=== PATIENT | male | born 1970 | race Caucasian/White ===

== ENCOUNTER 2023-03-13 08:10 | Emergency (ER) | payer OTHER, SELFPAY ==
--- NOTE | ~2023-03-13 | XR_ITS ---
EXAMINATION: XR ribs LT 2V DATE: 03/13/2023 08:55 INDICATION: Left rib pain. TECHNIQUE: 2 views of the left ribs on 3 radiographs were obtained. COMPARISON: Chest 2 views 11/23/2010 FINDINGS: There is no left-sided pneumonia, pleural effusion, or pneumothorax. The heart size is norm al. There are old healed fractures of left fourth-seventh ribs. There is an acute fracture of anterio r left seventh rib. IMPRESSION: 1. Acute fracture of anterior left seventh rib. Reviewed, dictated and finalized at location A.
--- NOTE | 2023-03-13 08:13 | ED.GENADULT ---
HPI - General Adult General Chief complaint: Unspecified Stated complaint: Pt said that he is having pain in left rib. Time Seen by Provider: 03/13/23 08:37 Mode of arrival: ambulatory Limitations: no limitations History of Present Illness HPI narrative: 52-year-old male presents with concern for left anterior rib pain. Reports he is concerned he has a broken rib. Reports he has broken ribs in the past and this feels very similar. Reports he can feel the rib ?popping?. Reports the pain is reproducible. He reports it hurts worse with deep breathing and coughing. He denies any other chest pain, shortness of breath, cough. He denies known injury or trauma. 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 He denies bruising, swelling, redness, rash, itching in the area MD complaint: Rib pain Related Data Home Medications Medication Instructions Recorded Confirmed albuterol sulfate 90 mcg/actuation 2 puff inhalation Q4-5H PRN SOB 03/13/23 03/13/23 aerosol inhaler duloxetine 60 mg capsule,delayed 60 mg PO DAILY 03/13/23 03/13/23 release lisinopril 20 mg tablet 20 mg PO DAILY 03/13/23 03/13/23 Allergies Allergy/AdvReac Type Severity Reaction Status Date / Time No Known Allergies Allergy Verified 03/13/23 08:35 Review of Systems Review of Systems: CONSTITUTIONAL: Denies malaise, chills, sweats, or fever. ENT: Denies rhinorrhea, congestion, sinus pain, otalgia or sore throat. CARDIOVASCULAR: Denies chest pain, palpitations, or edema. RESPIRATORY: Denies cough or dyspnea. GASTROINTESTINAL: Denies abdominal pain, nausea, vomiting, diarrhea SKIN: Denies redness, swelling, rash or itching. MUSCULOSKELETAL: Denies back pain. Reports left anterior rib pain All systems reviewed & are unremarkable except as noted in HPI and below PMFSH Comments At time of signature, agree with nursing past medical, surgical, social and family history. There is no relevant family history pertinent to the presenting complaint Exam Narrative: GENERAL: Well-appearing, well-nourished, and in no acute distress. HEAD: Normocephalic, atraumatic. ENT: Nares clear. Mucous membranes moist. NECK: Supple. CHEST: No respiratory distress. Clear to auscultation. No bony deformities, no asymmetry. Speaks in full sentences. HEART: Regular rate and rhythm. No murmur heard. ABDOMEN: Soft, nontender, nondistended, negative Olmedo sign EXTREMITIES: Normal range of motion. Tenderness upon palpation to the left lower anterior rib cage without bruising, swelling, redness, warmth vesicles SKIN: Warm, dry, no visible rash. NEURO: Alert and oriented x3. PSYCH: Normal mood and affect Course Course Emergency Course: Patient is aware of diagnosis, understands and agrees to treatment plan. Anticipatory guidance given. Patient agrees to follow-up as directed and is aware of reasons to seek care at the emergency department. Portions of this record may have been created with voice recognition software Level of Care: Express Care Visit Vital Signs Vital signs: Reviewed. Medical Decision Making MDM Narrative Medical decision making narrative: Exam findings and imaging show no acute concerns or changes; patient is non-toxic appearing and is in no distress. Patient is appropriate for outpatient treatment and follow-up. Imaging Data My impression: Images reviewed, interpreted by radiologist, agree, see report. Radiologist's impression: EXAMINATION: XR ribs LT 2V DATE: 03/13/2023 08:55 INDICATION: Left rib pain. TECHNIQUE: 2 views of the left ribs on 3 radiographs were obtained. COMPARISON: Chest 2 views 11/23/2010 FINDINGS: There is no left-sided pneumonia, pleural effusion, or pneumothorax. The heart size is normal. There are old healed fractures of left fourth-seventh ribs. There is an acute fracture of anterior left seventh rib. IMPRESSION: 1. Acute fracture of anterior
[2023-03-13 08:31] VITALS: BP 149/92; PULSE 75; RESP 16; TEMP 37.1; O2SAT 98
== END 2023-03-13 09:15 | disposition home or self-care (01) ==
PROVIDERS: Emergency Provider Nurse Practitioner; PCP Internal Medicine
DX: S22.32XA Fracture of one rib, left side, initial encounter for closed fracture (principal); X58.XXXA Exposure to other specified factors, initial encounter
CPT/HCPCS: 71100; 99213; G0463